=== PATIENT | female | born 2000 | race Caucasian/White ===

== ENCOUNTER 2019-01-23 23:27 | Emergency (ER) | payer BC ==
[~2019-01-23] VITALS: Ht 162.6 cm; Wt 113.4 kg
[2019-01-23 23:35] VITALS: BP 144/81
--- NOTE | 2019-01-23 23:38 | NUR ---
TO LOBBY A/W BED AND XRAY , AMBULATORY
--- NOTE | 2019-01-23 23:47 | NUR ---
PT AMBULATED TO ER BED 10
--- NOTE | 2019-01-23 23:54 | NUR ---
PT IS A 18 Y/O FEMALE WHO PRESENTS TO THE ED C/O FINGER PAIN. PT STATES THAT SHE SMASHED HER LEFT 5TH DIGIT IN THE DOOR. CONTROLLED BLEEDING NOTED. CMS INTACT. PT REPORTS 5/10 ACHING L 5TH DIGIT PAIN. PT DENIES CP, SOB, N/V/D. PT AWAKE AND ALERT, RR EVEN/UNLABORED. PT REPOSITIONED FOR COMFORT, BED IN LOWEST POSITION. ER MD DR. DARLING NOTIFIED. WILL CONTINUE TO MONITOR.
[2019-01-24] MEDS ORDERED: CLINDAMYCIN 150 MG CAP PO ONE (01:05)
[2019-01-24] MEDS ORDERED: IBUPROFEN 800 MG TAB PO ONE (01:10)
--- NOTE | 2019-01-24 01:50 | NUR ---
PT WITH L 5TH LONGFINGER SPLINT PROPERLY IN PLACE
[2019-01-24 01:53] VITALS: BP 134/78
--- NOTE | 2019-01-24 01:53 | NUR ---
Patient discharged with v/s stable. Written and verbal after care instructions given and explained. Patient alert, oriented and verbalized understanding of instructions. Ambulatory with steady gait. All questions addressed prior to discharge. ID band removed. Patient advised to follow up with PMD. Rx of BACTRIM, MOTRIN given. Patient educated on indication of medication including possible reaction and side effects. Opportunity to ask questions provided and answered.
== END 2019-01-24 01:53 | disposition home or self-care (01) ==
LOC: MED 23:27
DX: S62.667A Nondisplaced fracture of distal phalanx of left little finger, initial encounter for closed fracture (principal); W23.0XXA Caught, crushed, jammed, or pinched between moving objects, initial encounter; Y93.89 Activity, other specified; Y92.89 Other specified places as the place of occurrence of the external cause; Y99.8 Other external cause status
CPT/HCPCS: 73140; 90471; 90715; 99283